=== PATIENT | female | born 1980 | race Caucasian/White ===

== ENCOUNTER 2022-05-24 15:30 | Outpatient (RCR) | payer BC, SELFPAY ==
--- NOTE | 2022-05-24 16:17 | HP.PTDCSUM ---
It has been my pleasure to treat EDMOND GRAVES referred by JJOO PITTS, with the diagnosis of for a total of 10 visit(s). Discharge Date: Please see the following information for a summary of their discharge status. Subjective: Patient reports that she is doing great % Improvement: 90 Objective/Function: Posture: good throughout. Gait: good arm swing and trunk rotation. ROM:WFL in all planes. Strength: Scap: good, Cervical isometric: 5/5 Goal 1:: Patient will be I with HEP and progression Goal 2:: Patient will have full AROM of the cervical spine Goal 3:: Patient will report 80% improvement Goal 4:: Patient will have proper posture t/o tx session to demo increased scap s/s Plan: 05/24/22: Discharge to HEP. Manual stretching, subocciptal release, stretching and scapular strength/stabilization, modality of e-stim and heat If there are questions or concerns regarding this patient's physical therapy, please feel free to call me at [phone]. Thank you for the referral of this patient. Sincerely, Mitzi Garcia, DPT Balance/Gait/Functional tests - Balance/Special Test Scores Oswestry Neck Score: 26
== END 2022-05-24 19:00 | disposition home or self-care (01) ==
LOC: PT 15:30
DX: M50.30 Other cervical disc degeneration, unspecified cervical region (principal); M54.2 Cervicalgia
CPT/HCPCS: 97014; 97110; 97140; 97161; 97164; G0283

== ENCOUNTER → 2023-05-15 | Outpatient (CLI) | payer OTHER, SELFPAY | END | disposition home or self-care (01) | LOC: LABSPEC 12:08 | PROVIDERS: Referring Provider Physician Assistant Surgical; Visit Provider Physician Assistant Surgical | DX: N39.0 Urinary tract infection, site not specified (principal) | CPT/HCPCS: 87077; 87086; 87088; 87186 ==

== ENCOUNTER → 2023-05-29 | Outpatient (CLI) | payer OTHER, SELFPAY ==
--- NOTE | 2023-05-29 12:59 | RAD_ITS ---
STUDY: X-RAY - RIGHT FOOT CLINICAL: Female, 42 years old. Foot pain upon weightbearing. TECHNIQUE: 3 view(s) of the foot. COMPARISON: None. FINDINGS: Normal talus, calcaneus, and tarsal bones. Normal visualized subtalar, talonavicular, calcaneocuboid, tarsal and tarsometatarsal articulations. Normal metatarsi. Normal metatarsophalangeal joint of the great toe. Normal tibial and fibular sesamoid bones. Normal interphalangeal joint of the great toe. Normal phalanges of the great toe. Normal second through fifth metatarsophalangeal joints. Normal interphalangeal joints and phalanges of the lesser toes. The soft tissue structures are unremarkable. RAD/Foot min 3 Views IMPRESSION: Normal x-ray examination of the foot. Electronically Signed: Andi Agustin MD at 13:08 EDT ,
== END | disposition home or self-care (01) ==
LOC: MTLAB 13:01 → MTRAD 13:47
PROVIDERS: PCP Student in an Organized Health Care Education/Training Program; Referring Provider Physician Assistant Surgical; Visit Provider Physician Assistant Surgical
DX: M79.671 Pain in right foot (principal)
CPT/HCPCS: 73630